=== PATIENT | female | born 1960 | race Caucasian/White ===

== ENCOUNTER 2022-08-08 13:36 | Emergency (ER) | payer OTHER, BC | END 2022-08-08 16:50 | disposition home or self-care (01) | LOC: LB.ED 13:36 | DX: S09.90XA Unspecified injury of head, initial encounter (principal); E11.9 Type 2 diabetes mellitus without complications; Z79.899 Other long term (current) drug therapy; Z79.84 Long term (current) use of oral hypoglycemic drugs; Z88.5 Allergy status to narcotic agent; Z91.040 Latex allergy status; Z88.8 Allergy status to other drugs, medicaments and biological substances; V94.9XXA Unspecified water transport accident, initial encounter | CPT/HCPCS: 70450; 99283 ==